=== PATIENT | male | born 1990 | race Caucasian/White ===

== ENCOUNTER 2020-05-07 08:00 | Outpatient (RCR) | payer BC, SELFPAY ==
--- NOTE | 2020-03-26 09:10 | PTOPEVAL ---
PHYSICAL THERAPY EVALUATION AND PLAN OF CARE Thank you for referring Slade Santo to [facility]. I recommend Slade participate in PT 1-2x/week for 4-6weeks. Please review, sign, date and return this plan of care DB. I agree with and certify that the following plan of care is medically necessary. Referring Physician Date Attending Provider: Flaco Regalado, MD Evaluation Diagnosis right shoulder pain Onset 6months Cause incidious Subjective Information Slade is here with chronic and Query Text:As Reported By Patient/ worsening right shoulder pain. 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 Mostly just hurts with the wrong movement. Will use medication or ice to the shoulder to reduce pain. Feels pain radiate from shoulder along side of arm, but will also experience an achey pain that goes down the arm and up to the head. He has had one headache so far as a result of the shoulder pain. Some dressing and grooming are uncomfortable, but he is able to do them. Right Shoulder(s) Reported Pain Level 0 Pain Description Aching Lowest Pain Intensity 0 Greatest Pain Intensity 4 Pain Aggravating Factors Lifting Other Pain Aggravating Factors carring Pain Behaviors None Pain Relief Interventions Used By Ice,Medication Patient Pain Score Pain Score 0: Self Report Upper Extremity Range of Motion Scapular/ Shoulder Range of Motion Left Shoulder Flexion - Active 160 Shoulder Abduction - Active 165 Shoulder Medial Rotation - Active T2 Query Text:Reach Behind the Back Shoulder Lateral Rotation - Active 85 Shoulder Lateral Rotation - Active T4 Query Text:Reach Behind the Head Right Shoulder Flexion - Active 160 Shoulder Abduction - Active 165 Shoulder Medial Rotation - Active T6 Query Text:Reach Behind the Back Shoulder Lateral Rotation - Active 75 Shoulder Lateral Rotation - Active T3 Query Text:Reach Behind the Head Upper Extremity Muscle Strength Testing Scapular/Shoulder Right Shoulder Flexion Strength 5 Normal Shoulder Abduction Strength 3+ Fair + Shoulder Medial Rotation Strength 4 Good Shoulder Lateral Rotation Strength 4 Good Shoulder Strength Comments pain with abducion and IR Posture Sitting Position Posture Evaluation View
--- NOTE | 2020-04-02 07:58 | PCPTNOTE ---
Patient called & cancelled scheduled appointment this date due to having to work.
--- NOTE | 2020-04-22 13:17 | PTOPEVAL ---
PHYSICAL THERAPY PROGRESS REPORT AND PLAN OF CARE UPDATE Thank you for referring Slade Santo to [facility]. I recommend Slade continue PT 1x/week for 3-4weeks. Please review, sign, date and return this plan of care DB. I agree with and certify that the following plan of care is medically necessary. Referring Physician Date Attending Provider: Flaco Regalado, Progress Diagnosis right shoulder pain Onset 6months Cause incidious Subjective Information Slade reports that he feels his Query Text:As Reported By Patient/ pain is better, but the Family shoulder still feel tight. He enjoys the taping - it helps the shoulder to feel like it is moving better. Self Report Pain Assessment Right Shoulder(s) Reported Pain Level 2 Pain Description Aching,Soreness Pain Aggravating Factors Lifting Upper Extremity Range of Motion Scapular/ Shoulder Range of Motion Left Shoulder Flexion - Active 165 Shoulder Abduction - Active 170 Shoulder Medial Rotation - Active T4 Query Text:Reach Behind the Back Shoulder Lateral Rotation - Active 85 Shoulder Lateral Rotation - Active T4 Query Text:Reach Behind the Head Right Shoulder Flexion - Active 165 Shoulder Abduction - Active 165 Shoulder Medial Rotation - Active T4 Query Text:Reach Behind the Back Shoulder Lateral Rotation - Active 75 Shoulder Lateral Rotation - Active T3 Query Text:Reach Behind the Head Upper Extremity Muscle Strength Testing Scapular/Shoulder Right Shoulder Flexion Strength 5 Normal Shoulder Abduction Strength 4+ Good + Shoulder Medial Rotation Strength 4+ Good + Shoulder Lateral Rotation Strength 4+ Good + Shoulder Strength Comments pain continues with abducion and IR but reports it is less pain than would have been 2 weeks ago; decreased pain with MMT after FDN Special Tests-Upper Extremity Shoulder Special Tests Empty Can (supraspinatus) Test Negative Right Speed's Test Negative Right Hawkin's Lenny Test Negative Right Infraspinatus Test Negative Right Active Compression Test ([place]'s) Negative Right Upper Limb Tension Test:Median Positive Right PT Clinical Summary Slade is a 30 yo male. He has participated in outpatient physical therapy for 4 weeks for right shoulder pain. Today he presented with improved, but continuing symptoms. He is progressing well
--- NOTE | 2020-05-07 08:16 | PTOPEVAL ---
PHYSICAL THERAPY DISCHARGE NOTE Thank you for referring Slade Santo to [facility]. Please review, sign, date and return this plan of care DB. I agree with and certify that the following plan of care is medically necessary. Referring Physician Date Attending Provider: Flaco Regalado, MD Discharge Outpatient Past Medical History Past Medical History No Past Medical/Surgical History Patient/Family Denies Significant Past Medical/ Surgical History Evaluation Information Problem Diagnosis right shoulder pain Onset 6months Cause incidious Subjective Information has had no pain for 2 weeks Query Text:As Reported By Patient/ since started dry needling. He Family is happy with his progress. Self Report Self Report Pain Level 0 Pain Score Pain Score 0: Self Report Upper Extremity Muscle Strength Testing Scapular/Shoulder Right Shoulder Flexion Strength 5 Normal Shoulder Abduction Strength 5 Normal Shoulder Medial Rotation Strength 5 Normal Shoulder Lateral Rotation Strength 5 Normal Shoulder Strength Comments no pain Posture Sitting Position Posture Evaluation View Posterior Thoracic Spine Posture Neutral Thorax Posture Neutral Lumbar Spine Posture Neutral Shoulder Posture Neutral Shoulder Subluxation Position (L) Neutral,(R) Neutral Scapula Posture (L) Neutral,(R) Neutral PT Clinical Summary Slade is a 30 yo male. He has participated in outpatient physical therapy for 6 weeks for right shoulder pain. We started dry needling 2 weeks ago and he responded very well without pain at all for the last 2 weeks. His HEP was updated. He agrees to discharge this date. Rehabilitation Potential Excellent Patient/Caregiver's Personal Goals for decrease pain Rehabilitation Potential Barriers to Goal Achievements None Support Requirements For Optimal None [place] Patient/Caregiver Informed of Benefits/ Yes Risks of Rehabilitation Patient/Caregiver Participated in Plan Yes of Care Patient/Caregiver Agreed with Problem Yes List/POC/Goals
== END 2020-05-07 12:56 | disposition home or self-care (01) ==
LOC: ANHPT 08:00
PROVIDERS: PCP Internal Medicine; Visit Provider Internal Medicine
DX: M25.511 Pain in right shoulder (principal)
CPT/HCPCS: 97110; 97140; 97161

== ENCOUNTER 2022-03-21 09:46 | Outpatient (CLI) | payer BC, SELFPAY ==
[2022-03-21 11:18] LABS: Volume Semen 3.5 mL (1.5-5.0)
[2022-03-21 11:19] LABS: Liquefaction Semen Complete in 30 min. (<30 minutes); Semen Color Opaque (Grey-opaque); Semen Viscosity Increased (Not Increa.); pH Semen 8.5 (7.2-8.0)
[2022-03-21 11:20] LABS: Semen Immotility 10 %; Semen Morphology Result to Follow; Semen Non-Progressive Motility 30 %; Semen Progressive Motility 60 % (>32); Semen Total Motility 90 (>40% (PM+NP)); Sperm Count 84.6 Mil/mL (60-150 million/mL)
[2022-03-23 20:11] LABS: Fructose, Semen 172 mg/dL (150-600)
== END 2022-03-21 09:47 | disposition home or self-care (01) ==
LOC: CHSLAB 09:51
PROVIDERS: PCP Internal Medicine; Visit Provider Obstetrics & Gynecology
DX: Z30.09 Encounter for other general counseling and advice on contraception (principal)
CPT/HCPCS: 82757; 88160; 89320